=== PATIENT | female | born 1975 | race Caucasian/White ===

== ENCOUNTER → 2016-10-10 | Outpatient (CLI) | payer OTHER ==
[~2016-10-10] MED LIST: NOMEDS XX
--- NOTE | 2016-10-14 11:30 | RADIOLOGY REPORT PS360 ---
DIG MAMM-SCREEN KODI W/CAD CAD Screening COMPARISON: None, this is baseline INDICATION: There is no personal or family history of breast cancer TECHNIQUE: Standard CC and MLO images were obtained. R2 CAD reviewed. FINDINGS: Diffuse heterogenic fibroglandular densities are seen throughout both breasts. There is a possible asymmetric density upper outer quadrant left breast which is highlighted by CAD and show somewhat irregular borders. There are couple benign-appearing calcifications right breast. There are no suspicious microcalcifications. There are small nodes high in both axilla. IMPRESSION: Moderate diffuse breast density with asymmetric density left breast and recommend patient return for spot compression MLO and CC views and ultrasound if this proves to be a true lesion. BI-RADS CATEGORY: 0_Incomplete: Need additional imaging RECOMMENDED FOLLOWUP: ADD ADDITIONAL IMAGING (A letter has been sent to the patient regarding results of the study.)
== END ==
LOC: RAD 15:40
DX: Z12.31 Encounter for screening mammogram for malignant neoplasm of breast (principal)
CPT/HCPCS: G0202

== ENCOUNTER → 2016-12-08 | Outpatient (CLI) | payer OTHER ==
[2016-12-08 17:42] LABS: LYMPH # 2.3 K/mm3 (0.7-4.5); LYMPH % 29.3 % (10-50.0)
[2016-12-08 17:58] LABS: HEMOGLOBIN 13.5 g/dL (12.2-16.2)
[2016-12-08 18:44] LABS: ABO BLOOD TYPE A; RH BLOOD TYPE NEGATIVE
[2016-12-10 08:46] LABS: HIV Screen 4th Generation wRfx Non Reactive (Non Reactive)
[2016-12-10 08:46] LABS: HBsAg Screen Negative (Negative); Rapid Plasma Reagin, Quant Non Reactive (NonRea<1:1)
== END ==
LOC: LAB 16:52
PROVIDERS: Nurse Practitioner Obstetrics & Gynecology
DX: Z34.80 Encounter for supervision of other normal pregnancy, unspecified trimester (principal)
CPT/HCPCS: G0432

== ENCOUNTER → 2017-07-01 | Outpatient (CLI) | payer OTHER | LOC: LAB 17:20 | DX: Z34.80 Encounter for supervision of other normal pregnancy, unspecified trimester (principal) ==